=== PATIENT | female | born 1950 | race Caucasian/White ===

== ENCOUNTER → 2018-07-11 | Outpatient (CLI) | payer MEDICARE ==
[~2018-07-11] MED LIST: CIPR-173 PO; ETAN50IN SUBCUT; GLYB5TAB8 PO; HYDR-4441 PO; HYDR-4683 PO; LATA0.0015 EACHEYE; LISI2.5T47 PO; LOVA40TA72 PO; METF-370 PO; METHPOW77 XX; METR500T PO
[2018-07-11 16:26] LABS: Alcohol, Urine < 3.0 mg/dL (0-5); Amphetamine Screen, Urine NEGATIVE (NEGATIVE); Barbiturate Scree,Urine NEGATIVE (NEGATIVE); Benzodiazephine Screen, Urine NEGATIVE (NEGATIVE); Cannabinoid Screen, Urine NEGATIVE (NEGATIVE); Cocaine Screen, Urine NEGATIVE (NEGATIVE); Opiate Scree,Urine POSITIVE (NEGATIVE); Phencyclidine Screen, Urine NEGATIVE (NEGATIVE)
== END | disposition home or self-care (01) ==
LOC: LAB 14:53
PROVIDERS: ATTEND Internal Medicine
DX: F11.20 Opioid dependence, uncomplicated (principal)
CPT/HCPCS: 80307

== ENCOUNTER → 2020-10-01 | Outpatient (CLI) | payer MEDICARE ==
[~2020-10-01] MED LIST changes: +HYDR-4188 PO; -HYDR-4441 PO; -HYDR-4683 PO; +HYDR-4833 PO; -LATA0.0015 EACHEYE; +LATA0.0019 EACHEYE
[2020-10-01 10:42] LABS: BUN/Creatinine Ratio 27.7; Calcium 9.2 mg/dL (8.5-10.1); Potassium 4.4 mmol/L (3.5-5.1)
== END | disposition home or self-care (01) ==
LOC: LAB 09:57
PROVIDERS: ATTEND Internal Medicine
DX: I10 Essential (primary) hypertension (principal)
CPT/HCPCS: 36415; 80048

== ENCOUNTER 2021-05-20 11:53 | Emergency (ER) | payer MEDICARE ==
[~2021-05-20] VITALS: Ht 170.2 cm; Wt 76.2 kg
[2021-05-20 14:02] VITALS: BP 142/98
[2021-05-20] MEDS ORDERED: CEPH-509 PO (15:09)
[2021-05-20] MEDS ORDERED: ACET-1158 PO (15:09)
== END 2021-05-20 16:21 | disposition home or self-care (01) ==
LOC: ER 11:53
DX: S01.01XA Laceration without foreign body of scalp, initial encounter (principal); I10 Essential (primary) hypertension; E11.9 Type 2 diabetes mellitus without complications; Z86.2 Personal history of diseases of the blood and blood-forming organs and certain disorders involving the immune mechanism; Z79.899 Other long term (current) drug therapy; Z79.2 Long term (current) use of antibiotics; W01.0XXA Fall on same level from slipping, tripping and stumbling without subsequent striking against object, initial encounter; Y93.89 Activity, other specified; Y92.89 Other specified places as the place of occurrence of the external cause; Y99.8 Other external cause status
CPT/HCPCS: 12002; 70450; 70486; 99284; J2001

== ENCOUNTER 2021-09-22 12:57 | Inpatient (IN) | payer MEDICARE ==
[~2021-09-22] VITALS: Ht 172.7 cm; Wt 77.8 kg
[~2021-09-22 12:57] MED LIST changes: +ACET-1158 PO; +CEPH-509 PO
[2021-09-22] MEDS ORDERED: SODIUM CHLORIDE 0.9% 500 ML IVB ONE (13:15)
[2021-09-22 13:54] LABS: Basophils # (auto) 0.1 10 ^3/uL (0-0.2); Eosinophils # (auto) 0 10 ^3/uL (0-0.8); Eosinophils % (auto) 0.2 % (0.0-7.0); Hematocrit 38.9 % (36.0-46.0); Hemoglobin 12.7 g/dL (12.2-16.2); Lymphocytes # (auto) 1.1 10 ^3/uL (0.4-5.4); Lymphocytes % (auto) 11.8 % (10.0-50.0); Mean Corpuscular Hemoglobin 28.5 pg (28.0-32.0); Mean Corpuscular Hgb Conc. 32.5 g/dL (32.0-36.0); Mean Corpuscular Volume 87.5 fL (80.0-100.0); Monocytes # (auto) 1.3 10 ^3/uL (0-1.3); Monocytes % (auto) 13.7 % (0.0-12.0); Neutrophils # (auto) 6.8 10 ^3/uL (1.6-8.6); Neutrophils % (auto) 73.3 % (37.0-80.0); Nucleated Red Blood Cells % 0.1 %; Red Blood Cells 4.45 10^6/uL (4.0-5.20); Red Cell Distribution Width 18.1 % (11.8-14.3); White Blood Cell 9.2 10^3/uL (4.4-10.8)
[2021-09-22 14:09] LABS: Albumin 3.5 g/dL (3.4-5.0); BUN/Creatinine Ratio 27.9; Calcium 9.4 mg/dL (8.5-10.1); Potassium 4.5 mmol/L (3.5-5.1)
[2021-09-22 14:11] LABS: Bilirubin, Total 0.6 mg/dL (0.2-1.0); Total Protein 7.2 g/dL (6.4-8.2)
[2021-09-22] MEDS ORDERED: ASPirin 81 mg TAB PO ONE (18:45)
[2021-09-22] MEDS ORDERED: NITROGLYCERIN 0.4 MG SL TAB SL PRN (18:45)
[2021-09-22] MEDS ORDERED: MORPHINE SULFATE INJ 2 MG/ml SYRG IV PRN (18:45)
[2021-09-22] MEDS ORDERED: ENOXAPARIN SOD 80 MG/0.8ML SYRINGE SC ONE (18:45)
[2021-09-22] MEDS ORDERED: DEXTROSE (50%) 50ML SYRG IV PRN (19:15)
[2021-09-22 19:26] LABS: Cholesterol 159 mg/dL (< 200); HDL Cholesterol 73 mg/dL (40-59); LDL Cholesterol 68 mg/dL (< 100); Triglycerides 117 mg/dL (< 150)
[2021-09-22] MEDS: SODIUM CHLORIDE 0.9% 1,000 ML IV SCH (19:37)
[2021-09-22] MEDS: InsuLIN REG 1unit/0.01ml Soln (100units/ml) SC SCH (22:00)
[2021-09-22] MEDS: ACCU-CHEK COMFORT CURVE STRIP VI SCH (22:06)
[2021-09-22 23:00] VITALS: BP 113/66
[2021-09-23] MEDS ORDERED: ALL300T PO (03:34)
[2021-09-23] MEDS ORDERED: GLIP5TAB12 PO (03:34)
[2021-09-23] MEDS ORDERED: COLC1TAB3 PO (03:34)
[2021-09-23] MEDS ORDERED: LIDO5CRE14 EX (03:34)
[2021-09-23 05:00] VITALS: BP 94/62
[2021-09-23 06:19] LABS: Basophils # (auto) 0.1 10 ^3/uL (0-0.2); Basophils % (auto) 0.8 % (0.0-2.0); Eosinophils # (auto) 0 10 ^3/uL (0-0.8); Eosinophils % (auto) 0.3 % (0.0-7.0); Hematocrit 38.6 % (36.0-46.0); Hemoglobin 12.5 g/dL (12.2-16.2); Lymphocytes # (auto) 1.7 10 ^3/uL (0.4-5.4); Lymphocytes % (auto) 20.2 % (10.0-50.0); Mean Corpuscular Hemoglobin 28.4 pg (28.0-32.0); Mean Corpuscular Hgb Conc. 32.3 g/dL (32.0-36.0); Mean Corpuscular Volume 87.8 fL (80.0-100.0); Monocytes # (auto) 1.2 10 ^3/uL (0-1.3); Monocytes % (auto) 13.8 % (0.0-12.0); Neutrophils # (auto) 5.4 10 ^3/uL (1.6-8.6); Neutrophils % (auto) 64.9 % (37.0-80.0); Nucleated Red Blood Cells % 0.1 %; Red Cell Distribution Width 17.7 % (11.8-14.3); White Blood Cell 8.4 10^3/uL (4.4-10.8)
[2021-09-23 06:50] LABS: Albumin 3.1 g/dL (3.4-5.0); Potassium 4.4 mmol/L (3.5-5.1)
[2021-09-23] MEDS: InsuLIN REG 1unit/0.01ml Soln (100units/ml) SC SCH ×4 (06:52→21:37)
[2021-09-23] MEDS: ACCU-CHEK COMFORT CURVE STRIP VI SCH ×4 (06:52→21:28)
[2021-09-23 06:54] LABS: BUN/Creatinine Ratio 36.8; Bilirubin, Total 0.6 mg/dL (0.2-1.0); Total Protein 6.5 g/dL (6.4-8.2)
[2021-09-23 08:30] VITALS: BP 102/56
[2021-09-23 09:00] VITALS: BP 102/56
[2021-09-23] MEDS: SODIUM CHLORIDE 0.9% 1,000 ML IV SCH ×2 (11:55→18:10)
[2021-09-23 13:00] VITALS: BP 89/56
[2021-09-23 16:25] LABS: INR 1.1 (0.9-1.15); Partial Thromboplastin Time 29.6 sec (24.6-33.4)
[2021-09-23 16:31] VITALS: BP 96/56
[2021-09-23] MEDS: cefTRIAXone 1GM/50ML D5W 50 ML IV SCH (18:02)
[2021-09-23] MEDS: SUCRALFATE 1 GM TAB PO SCH (21:28)
[2021-09-23 22:40] VITALS: BP 92/54
[2021-09-24 04:52] VITALS: BP 100/64
[2021-09-24 05:25] LABS: Urine Bacteria NONE SEEN /hpf (None Seen); Urine Blood Negative /uL (Negative); Urine Specific Gravity 1.017 (1.001-1.035); Urine WBC 72 /hpf (0 - 5); Urine WBC Clumps PRESENT /hpf (None Seen)
[2021-09-24] MEDS: ACCU-CHEK COMFORT CURVE STRIP VI SCH ×4 (06:09→22:17)
[2021-09-24] MEDS: InsuLIN REG 1unit/0.01ml Soln (100units/ml) SC SCH ×4 (06:09→22:24)
[2021-09-24 09:00] VITALS: BP 97/53
[2021-09-24] MEDS: PANTOPRAZOLE 40 MG/10 ML VIAL INJ IV SCH (09:27)
[2021-09-24] MEDS: cefTRIAXone 1GM/50ML D5W 50 ML IV SCH (09:27)
[2021-09-24] MEDS: SUCRALFATE 1 GM TAB PO SCH ×2 (09:27→22:17)
[2021-09-24] MEDS: D5W/SOD CHL 0.45%/KCL 20MEQ 1,000 ML IV SCH (10:00)
[2021-09-24 10:33] LABS: Basophils # (auto) 0 10 ^3/uL (0-0.2); Basophils % (auto) 0.4 % (0.0-2.0); Eosinophils # (auto) 0 10 ^3/uL (0-0.8); Eosinophils % (auto) 0.5 % (0.0-7.0); Lymphocytes # (auto) 1.2 10 ^3/uL (0.4-5.4); Lymphocytes % (auto) 17.4 % (10.0-50.0); Mean Corpuscular Hemoglobin 27.4 pg (28.0-32.0); Mean Corpuscular Hgb Conc. 31.5 g/dL (32.0-36.0); Mean Corpuscular Volume 87.1 fL (80.0-100.0); Monocytes # (auto) 0.8 10 ^3/uL (0-1.3); Monocytes % (auto) 11.1 % (0.0-12.0); Neutrophils # (auto) 4.8 10 ^3/uL (1.6-8.6); Neutrophils % (auto) 70.6 % (37.0-80.0); Red Blood Cells 4.02 10^6/uL (4.0-5.20); Red Cell Distribution Width 18.1 % (11.8-14.3); White Blood Cell 6.8 10^3/uL (4.4-10.8)
[2021-09-24 10:40] LABS: Albumin 2.8 g/dL (3.4-5.0); BUN/Creatinine Ratio 46.2; Calcium 8.7 mg/dL (8.5-10.1); Potassium 4.1 mmol/L (3.5-5.1)
[2021-09-24 10:43] LABS: Bilirubin, Total 0.4 mg/dL (0.2-1.0); Total Protein 5.6 g/dL (6.4-8.2)
[2021-09-24 13:00] VITALS: BP 90/52
[2021-09-24] MEDS ORDERED: fentaNYL CITRATE 100 MCG/2 ML VL ONE ×2 (13:58→17:23)
[2021-09-24] MEDS ORDERED: MEPERIDINE HCL (25 MG/ML) 1ML VIAL ONE (13:58)
[2021-09-24] MEDS ORDERED: MIDAZOLAM HCL 2MG/2ML 2ml VIAL (1mg/ml) ONE (13:59)
[2021-09-24] MEDS ORDERED: ROCURONIUM 10MG/ML 10ML VIAL IV ONE (13:59)
[2021-09-24] MEDS ORDERED: GLYCOPYRROLATE 0.2 MG/ML 1ML VIAL ONE (13:59)
[2021-09-24] MEDS ORDERED: NEOSTIGMINE 1 MG/ML INJ (10mg/10ML VIAL) ONE (13:59)
[2021-09-24] MEDS ORDERED: ONDANSETRON HCL 4 MG/2 ML VIAL ONE (13:59)
[2021-09-24] MEDS ORDERED: ETOMIDATE (2MG/ML) 20ML VIAL IV ONE (13:59)
[2021-09-24] MEDS ORDERED: DexAMETHasone SOD PHOS 10MG/1ML VIAL INJ ONE (13:59)
[2021-09-24] MEDS ORDERED: SODIUM CHLORIDE LOCK 10 ML ONE (13:59)
[2021-09-24] MEDS: metroNIDAZOLE 500MG/100ML 100 ML IV SCH ×2 (14:00→22:17)
[2021-09-24] MEDS ORDERED: ceFAZolin 1GM/50ML 100 ML IV ONE (15:29)
[2021-09-24] MEDS ORDERED: METOCLOPRAMIDE HCL 5MG/ml INJ 2ml VIAL IV PRN (16:00)
[2021-09-24] MEDS ORDERED: ACCU-CHEK COMFORT CURVE STRIP VI ONE (16:00)
[2021-09-24] MEDS ORDERED: MORPHINE SULFATE 4 MG/ML SYR/VIAL IV PRN (16:00)
[2021-09-24] MEDS ORDERED: HYDROmorphone HCL 2 MG/ML VL/or syr IV PRN ×2 (16:00→17:00)
[2021-09-24] MEDS ORDERED: BUPIVACAINE HCL 0.25% P/F 10 ML VIAL ONE (16:19)
[2021-09-24] MEDS ORDERED: SUGAMMADEX 200mg/2ml Vial (100MG/ML) IV ONE (17:18)
[2021-09-24] MEDS ORDERED: hydrALAZINE HCL 20 MG/ML VL ONE (17:30)
[2021-09-24] MEDS ORDERED: ACETAMINOPHEN IV 1000 MG/100ML (10MG/ML) IV ONE (17:45)
[2021-09-24] MEDS ORDERED: ACETAMINOPHEN IV 100 ML IV ONE (17:49)
[2021-09-24 21:35] VITALS: BP 94/60
[2021-09-24] MEDS: SODIUM CHLORIDE 0.9% 1,000 ML IV SCH (22:17)
[2021-09-25] MEDS: D5W/SOD CHL 0.45%/KCL 20MEQ 1,000 ML IV SCH ×3 (01:22→18:00)
[2021-09-25 04:22] VITALS: BP 97/58
[2021-09-25 06:16] LABS: Basophils # (auto) 0 10 ^3/uL (0-0.2); Basophils % (auto) 0.1 % (0.0-2.0); Eosinophils # (auto) 0 10 ^3/uL (0-0.8); Hematocrit 33.5 % (36.0-46.0); Hemoglobin 10.7 g/dL (12.2-16.2); Lymphocytes # (auto) 0.6 10 ^3/uL (0.4-5.4); Lymphocytes % (auto) 6.2 % (10.0-50.0); Mean Corpuscular Volume 90.5 fL (80.0-100.0); Monocytes # (auto) 0.4 10 ^3/uL (0-1.3); Monocytes % (auto) 4.7 % (0.0-12.0); Neutrophils # (auto) 8.3 10 ^3/uL (1.6-8.6); Red Blood Cells 3.71 10^6/uL (4.0-5.20); White Blood Cell 9.3 10^3/uL (4.4-10.8)
[2021-09-25] MEDS: metroNIDAZOLE 500MG/100ML 100 ML IV SCH ×3 (06:23→22:00)
[2021-09-25] MEDS: ACCU-CHEK COMFORT CURVE STRIP VI SCH ×4 (06:24→22:58)
[2021-09-25] MEDS: InsuLIN REG 1unit/0.01ml Soln (100units/ml) SC SCH ×4 (06:29→22:00)
[2021-09-25] MEDS: PANTOPRAZOLE 40 MG/10 ML VIAL INJ IV SCH (09:05)
[2021-09-25] MEDS: cefTRIAXone 1GM/50ML D5W 50 ML IV SCH (09:05)
[2021-09-25] MEDS: SUCRALFATE 1 GM TAB PO SCH ×2 (09:06→22:58)
[2021-09-25 09:22] VITALS: BP 84/60
[2021-09-25 12:47] VITALS: BP 91/58
[2021-09-25] MEDS: SODIUM CHLORIDE 0.9% 1,000 ML IV SCH (13:55)
[2021-09-25 16:33] VITALS: BP 91/59
[2021-09-25 22:00] VITALS: BP 85/57
[2021-09-26] MEDS: D5W/SOD CHL 0.45%/KCL 20MEQ 1,000 ML IV SCH (02:20)
[2021-09-26 05:00] VITALS: BP 94/55
[2021-09-26] MEDS: metroNIDAZOLE 500 MG TAB PO SCH ×2 (05:59→14:00)
[2021-09-26] MEDS: SODIUM CHLORIDE 0.9% 1,000 ML IV SCH (06:00)
[2021-09-26] MEDS: InsuLIN REG 1unit/0.01ml Soln (100units/ml) SC SCH ×2 (06:01→11:28)
[2021-09-26] MEDS: ACCU-CHEK COMFORT CURVE STRIP VI SCH ×2 (06:01→11:28)
[2021-09-26 09:00] VITALS: BP 99/56
[2021-09-26] MEDS: cefTRIAXone 1GM/50ML D5W 50 ML IV SCH (09:00)
[2021-09-26] MEDS ORDERED: METR500T PO (09:28)
[2021-09-26] MEDS ORDERED: HYDR-4902 PO (09:28)
[2021-09-26] MEDS ORDERED: SUCR1TAB PO (09:28)
[2021-09-26] MEDS ORDERED: LEVO500T31 PO (09:28)
[2021-09-26] MEDS ORDERED: PANT40T PO (09:28)
[2021-09-26] MEDS ORDERED: LACTULOSE 20Gm/30ML SOLN PO ONE (09:30)
[2021-09-26 09:56] LABS: Basophils # (auto) 0 10 ^3/uL (0-0.2); Basophils % (auto) 0.5 % (0.0-2.0); Eosinophils # (auto) 0.1 10 ^3/uL (0-0.8); Eosinophils % (auto) 0.8 % (0.0-7.0); Hematocrit 38.8 % (36.0-46.0); Hemoglobin 12.5 g/dL (12.2-16.2); Lymphocytes % (auto) 18.2 % (10.0-50.0); Mean Corpuscular Hemoglobin 28.8 pg (28.0-32.0); Mean Corpuscular Hgb Conc. 32.2 g/dL (32.0-36.0); Mean Corpuscular Volume 89.4 fL (80.0-100.0); Monocytes # (auto) 1.1 10 ^3/uL (0-1.3); Monocytes % (auto) 10.4 % (0.0-12.0); Neutrophils # (auto) 7.6 10 ^3/uL (1.6-8.6); Neutrophils % (auto) 70.1 % (37.0-80.0); Nucleated Red Blood Cells % 0.2 %; Red Blood Cells 4.34 10^6/uL (4.0-5.20); Red Cell Distribution Width 19.2 % (11.8-14.3); White Blood Cell 10.8 10^3/uL (4.4-10.8)
[2021-09-26] MEDS: PANTOPRAZOLE 40 MG/10 ML VIAL INJ IV SCH (10:00)
[2021-09-26 10:18] LABS: Albumin 3.1 g/dL (3.4-5.0); BUN/Creatinine Ratio 32.3; Bilirubin, Total 0.4 mg/dL (0.2-1.0); Calcium 9.5 mg/dL (8.5-10.1); Potassium 4.3 mmol/L (3.5-5.1); Total Protein 6.7 g/dL (6.4-8.2)
[2021-09-26] MEDS: SUCRALFATE 1 GM TAB PO SCH (10:35)
[2021-09-26 10:53] VITALS: BP 99/56
[2021-09-26] MEDS ORDERED: ceFAZolin 1 GM/50ml D5W BAG /AE IV ONE (12:20)
[2021-09-26] MEDS ORDERED: SODI650T PO (12:44)
[2021-09-26 13:00] VITALS: BP 98/65
== END 2021-09-26 13:45 | disposition home or self-care (01) | DRG 417 ==
LOC: ER 12:57 → TELE 18:35 → TELE-EAST 23:00
PROVIDERS: ADMIT Registered Nurse; ATTEND Family Medicine
PROC: 0FT44ZZ Resection of Gallbladder, Percutaneous Endoscopic Approach (ICD-10-PCS; principal; 2021-09-24 15:58)
DX: K80.11 Calculus of gallbladder with chronic cholecystitis with obstruction (principal); I21.4 Non-ST elevation (NSTEMI) myocardial infarction; N17.0 Acute kidney failure with tubular necrosis; N39.0 Urinary tract infection, site not specified; E03.9 Hypothyroidism, unspecified; E11.9 Type 2 diabetes mellitus without complications; E86.0 Dehydration; I10 Essential (primary) hypertension; N20.0 Calculus of kidney; M32.9 Systemic lupus erythematosus, unspecified; I95.9 Hypotension, unspecified; E66.9 Obesity, unspecified; E11.22 Type 2 diabetes mellitus with diabetic chronic kidney disease; Z20.822 Contact with and (suspected) exposure to COVID-19; I12.9 Hypertensive chronic kidney disease with stage 1 through stage 4 chronic kidney disease, or unspecified chronic kidney disease; M06.9 Rheumatoid arthritis, unspecified; N18.30 Chronic kidney disease, stage 3 unspecified; E78.5 Hyperlipidemia, unspecified; Z68.25 Body mass index [BMI] 25.0-25.9, adult; Z79.84 Long term (current) use of oral hypoglycemic drugs
CPT/HCPCS: 36415; 71045; 74176; 76775; 78226; 80053; 80061; 81001; 82247; 82962; 83036; 83690; 83880; 84443; 84484; 85025; 85610; 85730; 86850; 86900; 86901; 87086; 93005; 93306; 96360; 96361; 96372; 97163; 99291; C9113; G0378; J0131; J0690; J0696; J1100; J1815; J2250; J2405; J3490

== ENCOUNTER 2021-10-07 16:42 | Inpatient (IN) | payer MEDICARE ==
[~2021-10-07] VITALS: Ht 167.6 cm; Wt 76.1 kg
[~2021-10-07 16:42] MED LIST changes: -ACET-1158 PO; +ALL300T PO; -CEPH-509 PO; -CIPR-173 PO; +COLC1TAB3 PO; -ETAN50IN SUBCUT; +GLIP5TAB12 PO; -GLYB5TAB8 PO; +HYDR-4902 PO; +LEVO500T31 PO; +LIDO5CRE14 EX; +PANT40T PO; +SODI650T PO; +SUCR1TAB PO
[2021-10-07 20:03] LABS: Basophils # (auto) 0 10 ^3/uL (0-0.2); Basophils % (auto) 0.7 % (0.0-2.0); Eosinophils # (auto) 0 10 ^3/uL (0-0.8); Eosinophils % (auto) 0.2 % (0.0-7.0); Hematocrit 37.2 % (36.0-46.0); Hemoglobin 11.6 g/dL (12.2-16.2); Lymphocytes % (auto) 15.2 % (10.0-50.0); Mean Corpuscular Hemoglobin 27.6 pg (28.0-32.0); Mean Corpuscular Hgb Conc. 31.2 g/dL (32.0-36.0); Mean Corpuscular Volume 88.5 fL (80.0-100.0); Monocytes # (auto) 0.7 10 ^3/uL (0-1.3); Monocytes % (auto) 10.6 % (0.0-12.0); Neutrophils # (auto) 4.7 10 ^3/uL (1.6-8.6); Neutrophils % (auto) 73.3 % (37.0-80.0); Nucleated Red Blood Cells % 0.1 %; Red Blood Cells 4.21 10^6/uL (4.0-5.20); Red Cell Distribution Width 19.8 % (11.8-14.3); White Blood Cell 6.5 10^3/uL (4.4-10.8)
[2021-10-07 20:23] LABS: Albumin 2.7 g/dL (3.4-5.0); Calcium 8.6 mg/dL (8.5-10.1); Potassium 3.9 mmol/L (3.5-5.1)
[2021-10-07 20:27] LABS: BUN/Creatinine Ratio 18.8
[2021-10-07 20:28] LABS: Bilirubin, Total 0.5 mg/dL (0.2-1.0); Total Protein 5.8 g/dL (6.4-8.2)
[2021-10-07] MEDS ORDERED: SODIUM CHLORIDE 0.9% 1,000 ML IV ONE (21:00)
[2021-10-07] MEDS ORDERED: ASPirin 325 MG TAB PO ONE (21:00)
[2021-10-07] MEDS ORDERED: MORPHINE SULFATE INJ 2 MG/ml SYRG IV PRN (21:30)
[2021-10-07] MEDS ORDERED: ACETAMINOPHEN 325 MG TAB PO PRN (21:30)
[2021-10-07] MEDS ORDERED: ONDANSETRON HCL 4 MG/2 ML VIAL IV PRN (21:30)
[2021-10-07] MEDS ORDERED: NITROGLYCERIN 0.4 MG SL TAB SL PRN (21:30)
[2021-10-07] MEDS ORDERED: DEXTROSE (50%) 50ML SYRG IV PRN (21:30)
[2021-10-07] MEDS ORDERED: TEMAZEPAM 15 MG CAP PO PRN (21:30)
[2021-10-07] MEDS ORDERED: ATORVASTATIN 20 MG TAB PO SCH (22:00)
[2021-10-07] MEDS: SODIUM BICARBONATE 650 MG TAB PO SCH (23:01)
[2021-10-07] MEDS: InsuLIN REG 1unit/0.01ml Soln (100units/ml) SC SCH (23:02)
[2021-10-07] MEDS: ACCU-CHEK COMFORT CURVE STRIP VI SCH (23:03)
[2021-10-08] MEDS ORDERED: ENOXAPARIN SOD 100 MG/1 ML SYRINGE SC ONE (01:15)
[2021-10-08 05:00] VITALS: BP 90/64
[2021-10-08] MEDS: ACCU-CHEK COMFORT CURVE STRIP VI SCH ×4 (06:14→22:00)
[2021-10-08] MEDS: InsuLIN REG 1unit/0.01ml Soln (100units/ml) SC SCH ×4 (06:14→23:21)
[2021-10-08 06:17] LABS: Basophils # (auto) 0 10 ^3/uL (0-0.2); Basophils % (auto) 0.7 % (0.0-2.0); Eosinophils # (auto) 0 10 ^3/uL (0-0.8); Eosinophils % (auto) 0.8 % (0.0-7.0); Hematocrit 33.1 % (36.0-46.0); Hemoglobin 10.6 g/dL (12.2-16.2); Lymphocytes # (auto) 1.5 10 ^3/uL (0.4-5.4); Lymphocytes % (auto) 24.8 % (10.0-50.0); Mean Corpuscular Hemoglobin 28.3 pg (28.0-32.0); Mean Corpuscular Volume 88.5 fL (80.0-100.0); Monocytes # (auto) 0.7 10 ^3/uL (0-1.3); Monocytes % (auto) 11.2 % (0.0-12.0); Neutrophils # (auto) 3.8 10 ^3/uL (1.6-8.6); Neutrophils % (auto) 62.5 % (37.0-80.0); Nucleated Red Blood Cells % 0.3 %; Red Blood Cells 3.74 10^6/uL (4.0-5.20); White Blood Cell 6.1 10^3/uL (4.4-10.8)
[2021-10-08 06:38] LABS: Potassium 3.3 mmol/L (3.5-5.1)
[2021-10-08 06:47] LABS: Albumin 2.2 g/dL (3.4-5.0); BUN/Creatinine Ratio 21.5; Bilirubin, Total 0.5 mg/dL (0.2-1.0); Calcium 8.1 mg/dL (8.5-10.1); Total Protein 4.8 g/dL (6.4-8.2)
[2021-10-08] MEDS: SODIUM BICARBONATE 650 MG TAB PO SCH ×2 (08:43→23:19)
[2021-10-08] MEDS: ASPirin 81 mg TAB PO SCH (08:43)
[2021-10-08 09:00] VITALS: BP 100/61
[2021-10-08] MEDS ORDERED: PANTOPRAZOLE 40 MG TAB PO SCH (10:00)
[2021-10-08 13:00] VITALS: BP 94/74
[2021-10-08 17:00] VITALS: BP 109/77
[2021-10-08] MEDS ORDERED: HYDROcodone-ACET 5/325MG TAB PO PRN (18:30)
[2021-10-08 22:00] VITALS: BP 93/66
[2021-10-08] MEDS: NYSTATIN (MOUTH-THROAT) 500,000 UNITS/5 ML SUSP MT SCH ×2 (23:18→23:25)
[2021-10-08] MEDS: ENOXAPARIN SOD 80 MG/0.8ML SYRINGE SC SCH (23:19)
[2021-10-08] MEDS: SUCRALFATE 1 GM TAB PO SCH (23:19)
[2021-10-08] MEDS: ATORVASTATIN 20 MG TAB PO SCH (23:19)
[2021-10-08] MEDS: glipiZIDE 5 MG TAB PO SCH (23:24)
[2021-10-09 05:00] VITALS: BP 94/57
[2021-10-09] MEDS: InsuLIN REG 1unit/0.01ml Soln (100units/ml) SC SCH ×4 (06:02→22:00)
[2021-10-09] MEDS: ACCU-CHEK COMFORT CURVE STRIP VI SCH ×4 (06:03→22:20)
[2021-10-09] MEDS: NYSTATIN (MOUTH-THROAT) 500,000 UNITS/5 ML SUSP MT SCH ×4 (06:05→22:16)
[2021-10-09] MEDS: SUCRALFATE 1 GM TAB PO SCH ×4 (06:05→22:19)
[2021-10-09 09:00] VITALS: BP 109/68
[2021-10-09] MEDS: ENOXAPARIN SOD 80 MG/0.8ML SYRINGE SC SCH ×2 (09:31→22:21)
[2021-10-09] MEDS: glipiZIDE 5 MG TAB PO SCH ×2 (09:35→22:00)
[2021-10-09] MEDS: ASPirin 81 mg TAB PO SCH (09:35)
[2021-10-09] MEDS: AMIODARONE HCL 200 MG TAB PO SCH ×2 (09:35→22:17)
[2021-10-09] MEDS: LISINOPRIL 5 MG TAB PO SCH (09:36)
[2021-10-09] MEDS: PANTOPRAZOLE 40 MG TAB PO SCH (09:36)
[2021-10-09] MEDS: SODIUM BICARBONATE 650 MG TAB PO SCH ×2 (09:37→22:17)
[2021-10-09] MEDS: ALLOPURINOL 300 MG TAB PO SCH (09:37)
[2021-10-09] MEDS: COLCHICINE 0.6 MG CAP PO SCH (09:37)
[2021-10-09 13:00] VITALS: BP 103/63
[2021-10-09 17:00] VITALS: BP 95/57
[2021-10-09] MEDS ORDERED: LATANOPROST 0.005 % OPTH(EYE) SOL 2.5ML EACHEYE SCH (18:00)
[2021-10-09 22:00] VITALS: BP 98/53
[2021-10-09] MEDS: ATORVASTATIN 20 MG TAB PO SCH (22:18)
[2021-10-10 05:00] VITALS: BP 93/52
[2021-10-10 05:37] VITALS: BP 96/63
[2021-10-10] MEDS: NYSTATIN (MOUTH-THROAT) 500,000 UNITS/5 ML SUSP MT SCH ×2 (06:24→11:17)
[2021-10-10] MEDS: ACCU-CHEK COMFORT CURVE STRIP VI SCH ×2 (06:25→11:18)
[2021-10-10] MEDS: SUCRALFATE 1 GM TAB PO SCH ×2 (06:25→11:18)
[2021-10-10] MEDS: InsuLIN REG 1unit/0.01ml Soln (100units/ml) SC SCH ×2 (06:45→11:18)
[2021-10-10] MEDS ORDERED: AMIO200T33 PO (08:21)
[2021-10-10] MEDS: ALLOPURINOL 300 MG TAB PO SCH (08:28)
[2021-10-10] MEDS: PANTOPRAZOLE 40 MG TAB PO SCH (08:28)
[2021-10-10] MEDS: ENOXAPARIN SOD 80 MG/0.8ML SYRINGE SC SCH (08:28)
[2021-10-10] MEDS: COLCHICINE 0.6 MG CAP PO SCH (08:28)
[2021-10-10] MEDS: ASPirin 81 mg TAB PO SCH (08:29)
[2021-10-10] MEDS: SODIUM BICARBONATE 650 MG TAB PO SCH (08:29)
[2021-10-10] MEDS: AMIODARONE HCL 200 MG TAB PO SCH (08:30)
[2021-10-10] MEDS: glipiZIDE 5 MG TAB PO SCH (08:30)
[2021-10-10] MEDS: LISINOPRIL 5 MG TAB PO SCH (08:31)
[2021-10-10 09:00] VITALS: BP 98/52
[2021-10-10 10:16] VITALS: BP 89/68
== END 2021-10-10 12:35 | disposition home health service (06) | DRG 308 ==
LOC: ER 16:42 → TELE 21:31 → TELE-CENTR 23:20
PROVIDERS: ADMIT Nurse Practitioner; ATTEND Family Medicine
DX: I48.91 Unspecified atrial fibrillation (principal); E43 Unspecified severe protein-calorie malnutrition; B37.0 Candidal stomatitis; D68.59 Other primary thrombophilia; D64.9 Anemia, unspecified; E03.9 Hypothyroidism, unspecified; E11.22 Type 2 diabetes mellitus with diabetic chronic kidney disease; E87.6 Hypokalemia; N18.9 Chronic kidney disease, unspecified; Z20.822 Contact with and (suspected) exposure to COVID-19; I12.9 Hypertensive chronic kidney disease with stage 1 through stage 4 chronic kidney disease, or unspecified chronic kidney disease; E11.21 Type 2 diabetes mellitus with diabetic nephropathy; Z79.899 Other long term (current) drug therapy; Z90.49 Acquired absence of other specified parts of digestive tract; Z68.27 Body mass index [BMI] 27.0-27.9, adult
CPT/HCPCS: 36415; 71045; 78582; 80053; 82962; 84443; 84484; 85025; 85379; 87081; 93005; 93970; 96360; G0378; J1815

== ENCOUNTER 2021-10-14 10:19 | Inpatient (IN) | payer MEDICARE ==
[~2021-10-14] VITALS: Ht 170.2 cm; Wt 78.0 kg
[~2021-10-14 10:19] MED LIST changes: +AMIO200T33 PO
[2021-10-14 11:21] LABS: Basophils # (auto) 0 10 ^3/uL (0-0.2); Basophils % (auto) 0.1 % (0.0-2.0); Eosinophils # (auto) 0 10 ^3/uL (0-0.8); Lymphocytes # (auto) 0.3 10 ^3/uL (0.4-5.4)
[2021-10-14 11:24] LABS: Hematocrit 36.7 % (36.0-46.0); Hemoglobin 11.5 g/dL (12.2-16.2); Lymphocytes % (auto) 2.3 % (10.0-50.0); Mean Corpuscular Hemoglobin 28.4 pg (28.0-32.0); Mean Corpuscular Hgb Conc. 31.4 g/dL (32.0-36.0); Mean Corpuscular Volume 90.4 fL (80.0-100.0); Monocytes # (auto) 0.9 10 ^3/uL (0-1.3); Neutrophils # (auto) 9.8 10 ^3/uL (1.6-8.6); Neutrophils % (auto) 89.6 % (37.0-80.0); Red Blood Cells 4.06 10^6/uL (4.0-5.20); Red Cell Distribution Width 19.2 % (11.8-14.3)
[2021-10-14 11:39] LABS: Albumin 2.4 g/dL (3.4-5.0); Calcium 8.2 mg/dL (8.5-10.1); Potassium 3.8 mmol/L (3.5-5.1)
[2021-10-14 11:42] LABS: BUN/Creatinine Ratio 18.9; Bilirubin, Total 0.6 mg/dL (0.2-1.0); Total Protein 5.7 g/dL (6.4-8.2)
[2021-10-14] MEDS ORDERED: DOCUSATE SOD 100 MG CAP PO PRN (17:30)
[2021-10-14] MEDS ORDERED: MORPHINE SULFATE INJ 2 MG/ml SYRG IV PRN (17:30)
[2021-10-14] MEDS ORDERED: ONDANSETRON HCL 4 MG/2 ML VIAL IV PRN (17:30)
[2021-10-14] MEDS ORDERED: SODIUM CHLORIDE 0.9% 1,000 ML IV ONE (17:30)
[2021-10-14] MEDS ORDERED: MIDODRINE HCL 10 MG TAB PO ONE (17:30)
[2021-10-14] MEDS ORDERED: HYDROcodone-ACET 5/325MG TAB PO PRN (17:30)
[2021-10-14] MEDS ORDERED: ACETAMINOPHEN 325 MG TAB PO PRN (17:30)
[2021-10-14] MEDS ORDERED: DEXTROSE (50%) 50ML SYRG IV PRN (19:30)
[2021-10-14] MEDS: metroNIDAZOLE 500MG/100ML 100 ML IV SCH (19:33)
[2021-10-14] MEDS: SODIUM CHLORIDE 0.9% 1,000 ML IV SCH (19:39)
[2021-10-14] MEDS: ACCU-CHEK COMFORT CURVE STRIP VI SCH (23:08)
[2021-10-14] MEDS: InsuLIN REG 1unit/0.01ml Soln (100units/ml) SC SCH (23:09)
[2021-10-14] MEDS ORDERED: ALBUMIN 5% 250 ML IV ONE (23:15)
[2021-10-15] MEDS: metroNIDAZOLE 500MG/100ML 100 ML IV SCH ×3 (02:17→17:20)
[2021-10-15 05:15] LABS: Basophils # (auto) 0.1 10 ^3/uL (0-0.2); Basophils % (auto) 0.9 % (0.0-2.0); Eosinophils # (auto) 0 10 ^3/uL (0-0.8); Eosinophils % (auto) 0.2 % (0.0-7.0); Hematocrit 27.8 % (36.0-46.0); Lymphocytes # (auto) 1.3 10 ^3/uL (0.4-5.4); Lymphocytes % (auto) 14.6 % (10.0-50.0); Mean Corpuscular Hemoglobin 28.7 pg (28.0-32.0); Mean Corpuscular Hgb Conc. 32.6 g/dL (32.0-36.0); Mean Corpuscular Volume 87.9 fL (80.0-100.0); Monocytes # (auto) 0.8 10 ^3/uL (0-1.3); Monocytes % (auto) 9.1 % (0.0-12.0); Neutrophils # (auto) 6.6 10 ^3/uL (1.6-8.6); Neutrophils % (auto) 75.2 % (37.0-80.0); Red Blood Cells 3.16 10^6/uL (4.0-5.20); Red Cell Distribution Width 18.8 % (11.8-14.3); White Blood Cell 8.8 10^3/uL (4.4-10.8)
[2021-10-15] MEDS: PHENYLEPHRINE IV 250 ML IV SCH ×2 (05:24→16:41)
[2021-10-15 05:30] LABS: Albumin 2.2 g/dL (3.4-5.0); Calcium 7.6 mg/dL (8.5-10.1); Potassium 3.4 mmol/L (3.5-5.1)
[2021-10-15 05:33] LABS: BUN/Creatinine Ratio 24.6; Bilirubin, Total 0.5 mg/dL (0.2-1.0); Total Protein 4.8 g/dL (6.4-8.2)
[2021-10-15] MEDS: InsuLIN REG 1unit/0.01ml Soln (100units/ml) SC SCH ×4 (06:39→22:40)
[2021-10-15] MEDS: ACCU-CHEK COMFORT CURVE STRIP VI SCH ×4 (06:39→22:40)
[2021-10-15] MEDS: ENOXAPARIN SOD 40 MG/0.4 ML SYRINGE SC SCH (09:54)
[2021-10-15] MEDS: SODIUM CHLORIDE 0.9% 1,000 ML IV SCH (16:41)
[2021-10-16] MEDS: metroNIDAZOLE 500MG/100ML 100 ML IV SCH ×3 (01:23→17:42)
[2021-10-16] MEDS: PHENYLEPHRINE IV 250 ML IV SCH ×3 (02:07→11:47)
[2021-10-16] MEDS: SODIUM CHLORIDE 0.9% 1,000 ML IV SCH (03:03)
[2021-10-16] MEDS: InsuLIN REG 1unit/0.01ml Soln (100units/ml) SC SCH ×4 (07:00→22:00)
[2021-10-16] MEDS: ACCU-CHEK COMFORT CURVE STRIP VI SCH ×4 (07:10→22:10)
[2021-10-16] MEDS: ENOXAPARIN SOD 40 MG/0.4 ML SYRINGE SC SCH (10:18)
[2021-10-16 12:40] LABS: Urine Bacteria MANY /hpf (None Seen); Urine Blood Negative /uL (Negative); Urine Specific Gravity 1.018 (1.001-1.035); Urine WBC 10 /hpf (0 - 5)
[2021-10-16 14:17] LABS: Basophils # (auto) 0.1 10 ^3/uL (0-0.2); Basophils % (auto) 0.6 % (0.0-2.0); Eosinophils # (auto) 0 10 ^3/uL (0-0.8); Eosinophils % (auto) 0.1 % (0.0-7.0); Hematocrit 33.4 % (36.0-46.0); Hemoglobin 10.7 g/dL (12.2-16.2); Lymphocytes # (auto) 1.1 10 ^3/uL (0.4-5.4); Lymphocytes % (auto) 9.5 % (10.0-50.0); Mean Corpuscular Hemoglobin 28.5 pg (28.0-32.0); Mean Corpuscular Volume 89.1 fL (80.0-100.0); Monocytes # (auto) 0.8 10 ^3/uL (0-1.3); Monocytes % (auto) 6.5 % (0.0-12.0); Neutrophils # (auto) 9.8 10 ^3/uL (1.6-8.6); Neutrophils % (auto) 83.3 % (37.0-80.0); Red Blood Cells 3.75 10^6/uL (4.0-5.20); White Blood Cell 11.7 10^3/uL (4.4-10.8)
[2021-10-16 14:25] LABS: Red Cell Distribution Width 19.5 % (11.8-14.3)
[2021-10-16] MEDS ORDERED: cefTRIAXone 1GM/50ML D5W 50 ML IV ONE (14:30)
[2021-10-16 14:52] LABS: BUN/Creatinine Ratio 25.8; Calcium 8.4 mg/dL (8.5-10.1); Potassium 3.7 mmol/L (3.5-5.1)
[2021-10-16] MEDS: DOXYCYCLINE 100 MG TAB/CAP PO SCH (22:06)
[2021-10-17] VITALS (90 sets, daily range): BP systolic 79–145; BP diastolic 51–80
[2021-10-17] MEDS: SODIUM CHLORIDE 0.9% 1,000 ML IV SCH ×3 (00:30→15:49)
[2021-10-17] MEDS: PHENYLEPHRINE IV 250 ML IV SCH ×4 (00:30→16:43)
[2021-10-17] MEDS: metroNIDAZOLE 500MG/100ML 100 ML IV SCH ×3 (02:13→17:10)
[2021-10-17] MEDS: InsuLIN REG 1unit/0.01ml Soln (100units/ml) SC SCH ×4 (06:05→21:04)
[2021-10-17] MEDS: ACCU-CHEK COMFORT CURVE STRIP VI SCH ×4 (06:05→21:04)
[2021-10-17] MEDS: cefTRIAXone 1GM/50ML D5W 50 ML IV SCH (08:42)
[2021-10-17] MEDS: ENOXAPARIN SOD 40 MG/0.4 ML SYRINGE SC SCH (10:10)
[2021-10-17] MEDS: DOXYCYCLINE 100 MG TAB/CAP PO SCH (10:11)
[2021-10-17] MEDS ORDERED: PANTOPRAZOLE 40 MG TAB PO ONE (12:45)
[2021-10-18] VITALS (77 sets, daily range): BP systolic 85–144; BP diastolic 48–77
[2021-10-18] MEDS: metroNIDAZOLE 500MG/100ML 100 ML IV SCH ×3 (01:06→17:30)
[2021-10-18 03:58] LABS: Basophils # (auto) 0 10 ^3/uL (0-0.2); Basophils % (auto) 0.7 % (0.0-2.0); Eosinophils # (auto) 0.1 10 ^3/uL (0-0.8); Eosinophils % (auto) 1.4 % (0.0-7.0); Hematocrit 28.9 % (36.0-46.0); Hemoglobin 9.3 g/dL (12.2-16.2); Lymphocytes # (auto) 1.2 10 ^3/uL (0.4-5.4); Lymphocytes % (auto) 19.4 % (10.0-50.0); Mean Corpuscular Hemoglobin 28.4 pg (28.0-32.0); Mean Corpuscular Hgb Conc. 32.1 g/dL (32.0-36.0); Mean Corpuscular Volume 88.5 fL (80.0-100.0); Monocytes # (auto) 0.7 10 ^3/uL (0-1.3); Monocytes % (auto) 11.3 % (0.0-12.0); Neutrophils # (auto) 4.1 10 ^3/uL (1.6-8.6); Neutrophils % (auto) 67.2 % (37.0-80.0); Red Blood Cells 3.26 10^6/uL (4.0-5.20); Red Cell Distribution Width 18.8 % (11.8-14.3); White Blood Cell 6.2 10^3/uL (4.4-10.8)
[2021-10-18 04:22] LABS: Potassium 3.3 mmol/L (3.5-5.1)
[2021-10-18] MEDS: SODIUM CHLORIDE 0.9% 1,000 ML IV SCH ×2 (04:22→14:15)
[2021-10-18] MEDS: PHENYLEPHRINE IV 250 ML IV SCH ×2 (04:23→16:20)
[2021-10-18 04:31] LABS: BUN/Creatinine Ratio 23.8; Calcium 7.8 mg/dL (8.5-10.1)
[2021-10-18] MEDS: InsuLIN REG 1unit/0.01ml Soln (100units/ml) SC SCH ×4 (06:09→22:00)
[2021-10-18] MEDS: ACCU-CHEK COMFORT CURVE STRIP VI SCH ×4 (06:10→22:06)
[2021-10-18] MEDS: cefTRIAXone 1GM/50ML D5W 50 ML IV SCH (08:43)
[2021-10-18] MEDS: ALLOPURINOL 100 MG TAB PO SCH (10:11)
[2021-10-18] MEDS: PANTOPRAZOLE 40 MG TAB PO SCH (10:11)
[2021-10-18] MEDS: ENOXAPARIN SOD 40 MG/0.4 ML SYRINGE SC SCH (10:12)
[2021-10-18] MEDS ORDERED: POTASSIUM CHL 20 Meq TABLET PO ONE (14:15)
[2021-10-19] VITALS (24 sets, daily range): BP systolic 94–125; BP diastolic 54–74
[2021-10-19] MEDS: PHENYLEPHRINE IV 250 ML IV SCH ×2 (00:40→09:00)
[2021-10-19] MEDS: metroNIDAZOLE 500MG/100ML 100 ML IV SCH ×3 (02:05→17:18)
[2021-10-19 03:51] LABS: Hematocrit 27.6 % (36.0-46.0); Hemoglobin 8.9 g/dL (12.2-16.2); Mean Corpuscular Hemoglobin 28.5 pg (28.0-32.0); Mean Corpuscular Volume 89.1 fL (80.0-100.0); White Blood Cell 5.9 10^3/uL (4.4-10.8)
[2021-10-19 04:00] LABS: Basophils % (manual) 0 (0.0-2.0); Blast Cells 0; Metamyelocytes % 0; Myelocytes % 0; Promyelocytes % 0; Reactive Lymphocytes 0
[2021-10-19 04:17] LABS: BUN/Creatinine Ratio 20.4; Calcium 7.5 mg/dL (8.5-10.1); Potassium 3.3 mmol/L (3.5-5.1)
[2021-10-19] MEDS: SODIUM CHLORIDE 0.9% 1,000 ML IV SCH ×2 (05:00→06:30)
[2021-10-19 05:40] LABS: Band Neutrophils % (manual) 6; Eosinophils % (manual) 1 (0-7); Lymphocytes % (manual) 15 (10.0-50.0); Monocytes % (manual) 5 (0-12)
[2021-10-19] MEDS: InsuLIN REG 1unit/0.01ml Soln (100units/ml) SC SCH ×4 (06:17→22:00)
[2021-10-19] MEDS: ACCU-CHEK COMFORT CURVE STRIP VI SCH ×4 (06:18→22:19)
[2021-10-19] MEDS: cefTRIAXone 1GM/50ML D5W 50 ML IV SCH (09:00)
[2021-10-19] MEDS ORDERED: Glucerna Carbsteady SHAKE Vanilla 8oz PO SCH (10:00)
[2021-10-19] MEDS ORDERED: POTASSIUM CHL 20 Meq TABLET PO ONE ×2 (10:09→10:15)
[2021-10-19] MEDS: PANTOPRAZOLE 40 MG TAB PO SCH (10:09)
[2021-10-19] MEDS: ENOXAPARIN SOD 40 MG/0.4 ML SYRINGE SC SCH (10:10)
[2021-10-19] MEDS: ALLOPURINOL 100 MG TAB PO SCH (10:10)
[2021-10-19] MEDS: Glucerna Carbsteady SHAKE Vanilla 8oz PO SCH (12:55)
[2021-10-20] MEDS: metroNIDAZOLE 500MG/100ML 100 ML IV SCH ×2 (01:33→09:33)
[2021-10-20 05:00] VITALS: BP 110/64
[2021-10-20] MEDS: ACCU-CHEK COMFORT CURVE STRIP VI SCH ×6 (06:41→22:18)
[2021-10-20] MEDS: InsuLIN REG 1unit/0.01ml Soln (100units/ml) SC SCH ×5 (06:41→22:00)
[2021-10-20 09:00] VITALS: BP 107/70
[2021-10-20] MEDS: cefTRIAXone 1GM/50ML D5W 50 ML IV SCH (09:33)
[2021-10-20] MEDS: ALLOPURINOL 100 MG TAB PO SCH (09:33)
[2021-10-20] MEDS: ENOXAPARIN SOD 40 MG/0.4 ML SYRINGE SC SCH (09:33)
[2021-10-20] MEDS: PANTOPRAZOLE 40 MG TAB PO SCH (09:33)
[2021-10-20] MEDS: Glucerna Carbsteady SHAKE Vanilla 8oz PO SCH (12:25)
[2021-10-20 13:00] VITALS: BP 110/70
[2021-10-20] MEDS ORDERED: DEXTROSE (50%) 50ML SYRG IV PRN (13:30)
[2021-10-20] MEDS: metroNIDAZOLE 500 MG TAB PO SCH ×2 (14:53→22:18)
[2021-10-20 17:00] VITALS: BP 117/67
[2021-10-20] MEDS: hydrOXYchloroQUINE SULFATE 200 MG TAB PO SCH (22:18)
[2021-10-21 05:00] VITALS: BP 126/71
[2021-10-21 05:28] LABS: Basophils # (auto) 0.1 10 ^3/uL (0-0.2); Basophils % (auto) 1.1 % (0.0-2.0); Eosinophils # (auto) 0.3 10 ^3/uL (0-0.8); Eosinophils % (auto) 4.8 % (0.0-7.0); Hematocrit 33.6 % (36.0-46.0); Hemoglobin 11.1 g/dL (12.2-16.2); Lymphocytes # (auto) 1.8 10 ^3/uL (0.4-5.4); Lymphocytes % (auto) 32.6 % (10.0-50.0); Mean Corpuscular Hemoglobin 28.9 pg (28.0-32.0); Mean Corpuscular Volume 87.6 fL (80.0-100.0); Monocytes # (auto) 0.6 10 ^3/uL (0-1.3); Monocytes % (auto) 11.2 % (0.0-12.0); Neutrophils # (auto) 2.8 10 ^3/uL (1.6-8.6); Neutrophils % (auto) 50.3 % (37.0-80.0); Nucleated Red Blood Cells % 0.2 %; Red Blood Cells 3.84 10^6/uL (4.0-5.20); Red Cell Distribution Width 18.9 % (11.8-14.3); White Blood Cell 5.5 10^3/uL (4.4-10.8)
[2021-10-21 05:36] LABS: Potassium 3.8 mmol/L (3.5-5.1)
[2021-10-21 05:40] LABS: BUN/Creatinine Ratio 11.5
[2021-10-21] MEDS: metroNIDAZOLE 500 MG TAB PO SCH ×3 (06:30→21:54)
[2021-10-21] MEDS: ACCU-CHEK COMFORT CURVE STRIP VI SCH ×8 (07:00→22:00)
[2021-10-21] MEDS: InsuLIN REG 1unit/0.01ml Soln (100units/ml) SC SCH ×5 (07:00→22:00)
[2021-10-21 09:00] VITALS: BP 119/72
[2021-10-21] MEDS: cefTRIAXone 1GM/50ML D5W 50 ML IV SCH (09:40)
[2021-10-21] MEDS: hydrOXYchloroQUINE SULFATE 200 MG TAB PO SCH ×2 (09:41→21:54)
[2021-10-21] MEDS: ENOXAPARIN SOD 40 MG/0.4 ML SYRINGE SC SCH (09:41)
[2021-10-21] MEDS: ALLOPURINOL 100 MG TAB PO SCH (09:41)
[2021-10-21] MEDS: PANTOPRAZOLE 40 MG TAB PO SCH (09:41)
[2021-10-21 12:34] VITALS: BP 111/68
[2021-10-21] MEDS: Glucerna Carbsteady SHAKE Vanilla 8oz PO SCH (13:16)
[2021-10-21 17:00] VITALS: BP 107/67
[2021-10-21 22:00] VITALS: BP 107/64
[2021-10-22 05:00] VITALS: BP 103/70
[2021-10-22] MEDS: ACCU-CHEK COMFORT CURVE STRIP VI SCH ×6 (06:43→17:00)
[2021-10-22] MEDS: InsuLIN REG 1unit/0.01ml Soln (100units/ml) SC SCH ×3 (06:43→17:00)
[2021-10-22] MEDS: metroNIDAZOLE 500 MG TAB PO SCH ×2 (06:43→15:49)
[2021-10-22 09:12] VITALS: BP 118/61
[2021-10-22] MEDS: cefTRIAXone 1GM/50ML D5W 50 ML IV SCH (09:33)
[2021-10-22] MEDS: ENOXAPARIN SOD 40 MG/0.4 ML SYRINGE SC SCH (09:33)
[2021-10-22] MEDS: ALLOPURINOL 100 MG TAB PO SCH (09:34)
[2021-10-22] MEDS: PANTOPRAZOLE 40 MG TAB PO SCH (09:34)
[2021-10-22] MEDS: hydrOXYchloroQUINE SULFATE 200 MG TAB PO SCH (09:34)
[2021-10-22] MEDS: Glucerna Carbsteady SHAKE Vanilla 8oz PO SCH (12:08)
[2021-10-22 13:26] VITALS: BP 98/64
== END 2021-10-22 17:20 | DRG 871 ==
LOC: ER 10:19 → OVERFLOW 17:28 → ICU WEST 10-16 23:33 → TELE-WESTW 10-19 14:34
PROVIDERS: ADMIT Internal Medicine; ATTEND Internal Medicine
DX: A41.9 Sepsis, unspecified organism (principal); I21.4 Non-ST elevation (NSTEMI) myocardial infarction; R65.21 Severe sepsis with septic shock; N17.0 Acute kidney failure with tubular necrosis; N39.0 Urinary tract infection, site not specified; E88.09 Other disorders of plasma-protein metabolism, not elsewhere classified; M32.9 Systemic lupus erythematosus, unspecified; N18.2 Chronic kidney disease, stage 2 (mild); Z20.822 Contact with and (suspected) exposure to COVID-19; E11.22 Type 2 diabetes mellitus with diabetic chronic kidney disease; E78.5 Hyperlipidemia, unspecified; I12.9 Hypertensive chronic kidney disease with stage 1 through stage 4 chronic kidney disease, or unspecified chronic kidney disease; I48.91 Unspecified atrial fibrillation; M06.9 Rheumatoid arthritis, unspecified; M10.9 Gout, unspecified; Z79.84 Long term (current) use of oral hypoglycemic drugs; Z90.49 Acquired absence of other specified parts of digestive tract
CPT/HCPCS: 36415; 71045; 80048; 80053; 81001; 82962; 84484; 85007; 85025; 85027; 87040; 87081; 87086; 93005; 93971; 97110; 97116; 97163; 97530; G0378; J0696; J1815; J3490